=== PATIENT | female | born 1955 | race Caucasian/White ===

== ENCOUNTER 2018-02-07 10:17 | Day surgery (SDC) | payer OTHER ==
[2018-02-07] MEDS ORDERED: FENTAnyl 50 MCG/ML VIAL (12:15)
[2018-02-07] MEDS ORDERED: MIDAZOLAM 1 MG/ML 2 ML INJ ×2 (12:15)
== END 2018-02-07 15:09 | disposition home or self-care (01) ==
LOC: GIL 10:17
DX: Z12.11 Encounter for screening for malignant neoplasm of colon (principal); D12.5 Benign neoplasm of sigmoid colon; I10 Essential (primary) hypertension; E11.9 Type 2 diabetes mellitus without complications
CPT/HCPCS: 45380; 88305